=== PATIENT | female | born 1970 | race Hispanic/Latino ===

== ENCOUNTER 2020-04-08 14:37 | Emergency (ER) | payer OTHER ==
[~2020-04-08] VITALS: Ht 154.9 cm; Wt 90.7 kg
[2020-04-08] MEDS ORDERED: FAMOTIDINE 20 MG/2 ML VIAL IV STA (14:52)
[2020-04-08 15:16] LABS: BASOPHILS % 0.4 % (0.0-1.0); EOSINOPHILS # (AUTO) 0.1 (0.0-0.4); EOSINOPHILS % 1.8 % (0.0-6.0); HEMATOCRIT 38.4 % (34.2-44.1); LYMPHOCYTES # (AUTO) 2.5 (1.0-3.2); LYMPHOCYTES % 31.8 % (18.0-39.1); MEAN CORPUSCULAR HEMOGLOBIN 29.1 pg (28-32); MEAN CORPUSCULAR HGB CONC 33.9 g/dL (31-35); MEAN CORPUSCULAR VOLUME 86.1 fL (81-99); MONOCYTES # (AUTO) 0.6 (0.2-0.8); MONOCYTES % 7.7 % (4.4-11.3); NEUTROPHILS # (AUTO) 4.5 (2.1-6.9); PLATELET COUNT 307 x10e3/uL (140-360); RED BLOOD COUNT 4.46 x10e6/uL (3.6-5.1); RED CELL DISTRIBUTION WIDTH 13.2 % (11.7-14.4)
[2020-04-08 15:39] LABS: ALANINE AMINOTRANSFERASE 24 IU/L (0-55); ALBUMIN 4.1 g/dL (3.5-5.0); ALBUMIN/GLOBULIN RATIO 1.2 (0.8-2.0); ALKALINE PHOSPHATASE 65 IU/L (40-150); ANION GAP 11.8 mmol/L (8-16); BLOOD UREA NITROGEN 14 mg/dL (7-26); CALCIUM 8.6 mg/dL (8.4-10.2); CARBON DIOXIDE 25 mmol/L (22-29); CHLORIDE 103 mmol/L (98-107); GLUCOSE 111 mg/dL (74-118); POTASSIUM 3.8 mmol/L (3.5-5.1); SODIUM 136 mmol/L (136-145)
[2020-04-08 15:56] LABS: BUN/CREATININE RATIO 19 (6-25); CREATININE, SERUM 0.74 mg/dL (0.57-1.11); EST GLOMERULAR FILTRATION RATE > 60 ML/MIN (60-)
[2020-04-08 17:18] VITALS: BP 178/96
[2020-04-08 18:44] LABS: LIPASE 11 U/L (8-78)
== END 2020-04-08 17:22 | disposition home or self-care (01) ==
LOC: ER 15:19
DX: R07.9 Chest pain, unspecified (principal); R06.02 Shortness of breath; E03.9 Hypothyroidism, unspecified
CPT/HCPCS: 36415; 71045; 80053; 83690; 84484; 84702; 85025; 93005; 99283